=== PATIENT | female | born 1980 | race American Indian/Alaskan Native ===

== ENCOUNTER 2021-01-21 08:13 | Outpatient (CLI) | payer OTHER ==
--- NOTE | 2021-01-21 10:11 | Fluoroscopy Report ---
Upper GI HISTORY: DIAPHRAGMATIC W/O OBSTRUCTION OR GANGRENE. Chronic reflux which is being treated with medic ation, dysphagia Technique: Single and double contrast barium technique utilized to evaluate the esophagus, stomach, and duodenal C-loop. Findings: No mucosal irregularity, mass, mass effect, or critical stenosis. There were no abnormal tertiary c ontractions as seen with dysmotility. There was moderate gastroesophageal reflux reaching the mid eso phagus. There was no hiatal hernia. Impression: 1. Moderate gastroesophageal reflux. 2. No hiatal hernia identified. Fluoroscopic time: 1.2 minutes Number of fluoroscopic images: 16 Signer Name: Johnnie Gerardo MD Signed: 01/21/2021 10:06 AM Workstation Name: [id number]
== END 2021-01-21 08:14 | disposition home or self-care (01) ==
LOC: FLUORO 08:13
PROVIDERS: ATTEND Internal Medicine
DX: K21.9 Gastro-esophageal reflux disease without esophagitis (principal); K44.9 Diaphragmatic hernia without obstruction or gangrene
CPT/HCPCS: 74246